=== PATIENT | female | born 2000 | race African-American/Black ===

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

== ENCOUNTER 2021-04-15 22:26 | Emergency (ER) | payer OTHER ==
[2021-04-15 22:42] VITALS: BP 122/74
--- NOTE | 2021-04-15 23:16 | ED Physician Documentation ---
History of Present Illness - Stated complaint Stated Complaint: THROAT PX - Chief complaint Chief Complaint: Heent - History obtained from History obtained from: Patient - Additonal information Additional information: 19-year-old woman presents with chronic throat pain for the past month of unknown origin. Patient denies rhinorrhea, congestion, fever chills, cough, chest pain, shortness of breath. She is previously healthy. She recently moved here. No history of seasonal allergies. Patient was seen at [facility] today via telehealth and had a Covid test done. 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 HEENT: None Psych: None Musculoskeletal: None Derm: None - Past Surgical History Past Surgical History: No - Present Medications Home Medications: Ambulatory Orders Medication Instructions Recorded Confirmed EPINEPHrine [Epinephrine] 0.3 mg IJ ONCE PRN #2 syr 12/22/20 04/15/21 - Allergies Allergies/Adverse Reactions: Allergies Allergy/AdvReac Type Severity Reaction Status Date / Time shellfish derived Allergy Anaphylaxis Verified 04/15/21 22:42 - Social History Does the pt smoke?: No Smoking Status: Never smoker Does the pt drink ETOH?: No Does the pt have substance abuse?: No - Immunizations Immunizations are current?: Yes - POLST Patient has POLST: No PD ED PE NORMAL - Vitals Vital signs reviewed: Yes - General General: Alert and oriented X 3, No acute distress, Well developed/nourished - HEENT HEENT: Atraumatic, PERRL, EOMI, Moist mucous membranes, Pharynx benign - Neck Neck: Supple, no meningeal sign - Cardiac Cardiac: RRR - Respiratory Respiratory: No respiratory distress, Clear bilaterally - Derm Derm: Normal color, Warm and dry - Neuro Neuro: Alert and oriented X 3 - Psych Psych: Normal mood, Normal affect Results - Vitals Vitals: Vital Signs - 24 hr 04/15/21 22:39 Temperature 36.0 C L Heart Rate 82 Respiratory 14 Rate Blood Pressure 122/74 O2 Saturation 100 Oxygen O2 Source Room air PD MEDICAL DECISION MAKING - ED course ED course: 20-year-old presents with chronic sore throat for the past month, seen through [facility] via telehealth earlier today with Covid test done. She presents to have her throat checked. Oropharynx is clear without any white exudates. Return precautions given. Patient will follow up with [facility]. Departure - Departure Disposition: Home, Self Care Clinical Impression: Throat pain Condition: Good Instructions: Sore Throat Comments: You were seen in the emergency department for throat pain. I can see your no abnormalities on your physical exam. Please follow-up with [facility] and follow-up your Covid result. You should isolate at home until you get the results back. Return to the emergency department if you have any new or worsening symptoms or other concerns.
== END 2021-04-15 23:19 | disposition home or self-care (01) ==
LOC: ED 22:26
DX: R07.0 Pain in throat (principal)
CPT/HCPCS: 99281; 99282

== ENCOUNTER 2021-05-04 17:19 | Emergency (ER) | payer OTHER ==
[2021-05-04 18:54] LABS: BILIRUBIN,URINE NEGATIVE (NEGATIVE); GLUCOSE, URINE (UA) NEGATIVE (NEGATIVE); KETONES,URINE (UA) TRACE mg/dL (NEGATIVE); LEUKOCYTE ESTERASE, URINE NEGATIVE (NEGATIVE); NITRITE,URINE NEGATIVE (NEGATIVE); OCCULT BLOOD,URINE NEGATIVE (NEGATIVE); PH,URINE 7.5 PH (5.0-7.5); PROTEIN,URINE NEGATIVE (NEGATIVE); UROBILINOGEN,URINE 2 E.U./dL (NORMAL)
[2021-05-04 18:56] LABS: CLARITY,URINE CLEAR (CLEAR); HCG UR QUAL NEGATIVE
[2021-05-04 19:19] LABS: BASOPHILS % (AUTO) 0.7 %; EOSINOPHILS # (AUTO) 0.3 10^3/uL (0.0-0.7); EOSINOPHILS % (AUTO) 5.7 %; HCT - HEMATOCRIT 42.4 % (37.0-47.0); HGB - HEMOGLOBIN 13.9 g/dL (12.0-16.0); LYMPHOCYTES % (AUTO) 54.1 %; MEAN CORPUSCULAR HEMOGLOBIN 29.2 pg (27.0-31.0); MEAN CORPUSCULAR HGB CONC 32.8 g/dL (32.0-36.0); MEAN CORPUSCULAR VOLUME 89.1 fL (81.0-99.0); MEAN PLATELET VOLUME 9.4 fL (7.9-10.8); MONOCYTES # (AUTO) 0.5 10^3/uL (0.0-1.0); MONOCYTES % (AUTO) 8.2 %; NEUTROPHILS # (AUTO) 1.7 10^3/uL (1.5-6.6); NEUTROPHILS % (AUTO) 31.1 %; PLT - PLATELET COUNT 261 10^3/uL (130-450); RED BLOOD COUNT 4.76 10^6/uL (4.20-5.40); RED CELL DISTRIBUTION WIDTH 12.9 % (12.0-15.0); WHITE BLOOD COUNT 5.6 x10^3/uL (4.8-10.8)
[2021-05-04 19:32] LABS: ALBUMIN 4.1 g/dL (3.2-5.5); BILIRUBIN,TOTAL 0.8 mg/dL (0.2-1.0); CALCIUM 9.6 mg/dL (8.5-10.3); CREATININE 0.6 mg/dL (0.4-1.0); TOTAL PROTEIN 8.1 g/dL (6.7-8.2)
--- NOTE | 2021-05-04 19:43 | ED Physician Documentation ---
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 She denied that she had any abdominal pain however on presentation to the ER she has right flank pain. No fevers. No dysuria urgency or frequency. No history of nephrolithiasis. No history of similar. 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 : None HEENT: None Psych: None Musculoskeletal: None Derm: None - Past Surgical History Past Surgical History: No - Present Medications Home Medications: Ambulatory Orders Medication Instructions Recorded Confirmed EPINEPHrine [Epinephrine] 0.3 mg IJ ONCE PRN #2 syr 12/22/20 04/15/21 - Allergies Allergies/Adverse Reactions: Allergies Allergy/AdvReac Type Severity Reaction Status Date / Time shellfish derived Allergy Anaphylaxis Verified 05/04/21 17:26 - Social History Does the pt smoke?: No Smoking Status: Never smoker Does the pt drink ETOH?: No Does the pt have substance abuse?: No - Immunizations Immunizations are current?: Yes - POLST Patient has POLST: No PD ED PE NORMAL - General General: Alert and oriented X 3, No acute distress - HEENT HEENT: PERRL - Neck Neck: Supple, no meningeal sign - Cardiac Cardiac: RRR, No murmur - Respiratory Respiratory: Clear bilaterally - Abdomen Abdomen: Normal bowel sounds, Soft. No: Non tender (Right lower quadrant and right flank tenderness with No guarding or rebound. Equivocal McBurney's. Negative Nemwan's.) - Back Back: No CVA TTP, No spinal TTP - Derm Derm: Warm and dry - Extremities Extremities: No deformity - Neuro Neuro: Alert and oriented X 3 Eye Opening: Spontaneous Motor: Obeys Commands Results - Vitals Vitals: Vital Signs - 24 hr 05/04/21 05/04/21 17:23 21:00 Temperature 36.3 C L Heart Rate 88 75 Respiratory 18 16 Rate Blood Pressure 126/81 H 131/65 H O2 Saturation 100 100 Oxygen O2 Source Room air - Labs Labs: Laboratory Tests 05/04/21 05/04/21 05/04/21 17:35 19:13 19:13 WBC 5.6 RBC 4.76 Hgb 13.9 Hct 42.4 MCV 89.1 MCH 29.2 MCHC 32.8 RDW 12.9 Plt Count 261 MPV 9.4 Neut # (Auto) 1.7 Lymph # (Auto) 3.0 [place] # (Auto) 0.5 Eos # (Auto) 0.3 Baso # (Auto) 0.0 Absolute Nucleated RBC 0.00 Nucleated RBC % 0.0 Sodium 137 Potassium 4.0 Chloride 102 Carbon Dioxide 26 Anion Gap 9.0 BUN 10 Creatinine 0.6 Estimated GFR (MDRD) 156 Glucose 87 Calcium 9.6 Total Bilirubin 0.8 AST 18 ALT 12 Alkaline Phosphatase 55 Total Protein 8.1 Albumin 4.1 Globulin 4.0 Albumin/Globulin Ratio 1.0 Lipase 31 Urine Color YELLOW Urine Clarity CLEAR Urine pH 7.5 Ur Specific [place] 1.020 Urine Protein NEGATIVE Urine Glucose (UA) NEGATIVE Urine Ketones TRACE Urine Occult Blood NEGATIVE Urine Nitrite NEGATIVE Urine Bilirubin NEGATIVE Urine Urobilinogen 2 H Ur Leukocyte Esterase NEGATIVE Ur Microscopic Review NOT INDICATED Urine Culture Comments NOT INDICATED Urine HCG, Qual NEGATIVE - Rads (name of study) CT abd Radiology: Final report received (Multiple tiny punctate right-sided nephroliths. No evidence for obstructive uropathy. No urinary bladder stone. 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 By the time she presented to the ER the vomiting had dissipated but on exam she is noted to have some right lower quadrant and right flank tenderness. She denies that she is having pain at the time of the vomiting episode. Screening labs showed no worrisome abnormality no findings of infection in the urine or hematuria. But given the vomiting and the now right lower quadrant right flank pain a CT scan was completed. 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 The CT however does show multiple small nonobstructing right-sided nephroliths. No obstruction and no signs of infection in the urine. No indication for antibiotics. I suspect that she was passing a stone at the time that she had the vomiting though she denies that she was having belly pain. Patient is advised to follow- up with urology. I did recommend ibuprofen and Tylenol for discomfort. Emergent return precautions were discussed. Departure - Departure Disposition: Home, Self Care Clinical Impression: Nephrolithiasis Nausea and vomiting Qualifiers: Vomiting type: unspecified Vomiting Intractability: non-intractable Qualified Code(s): R11.2 - Nausea with vomiting, unspecified Condition: Stable Record reviewed to determine appropriate education?: Yes Instructions: ED Stone Kidney Undescended No Sx Comments: You are seen in the emergency department for sudden onset nausea and vomiting. When you presented to the ER you were no longer vomiting and you were now able to tolerate eating and drinking. However we noted that you were fairly tender on the right side of your abdomen. Therefore we did do a CT of the abdomen that shows multiple nonobstructing right-sided kidney stones. I suspect that you are passing a kidney stone at the time that you had the nausea and vomiting earlier in the day. Please discuss this ED visit with [facility]. You should of obtain a referral to urology in follow-up. In general I recommend you take Tylenol or ibuprofen for discomfort. If at any point you feel that your symptoms are worsening, you have uncontrolled vomiting, severe pain in your abdomen or develop any fevers then please return immediately to the ER for second evaluation.
[2021-05-04] MEDS ORDERED: IOVERSOL 320 100 ML VIAL IVP ONE (20:00)
[2021-05-04 21:01] VITALS: BP 131/65
[2021-05-04] MEDS ORDERED: ACETAMINOPHEN 325 MG TABLET PO STA (21:02)
--- NOTE | 2021-05-04 21:05 | CT Report ---
PROCEDURE: Abdomen/Pelvis WO INDICATIONS: RT FLANK PAIN, N/V, RLQ TENDERNESS TECHNIQUE: Noncontrast 5 mm thick sections acquired from the diaphragms to the symphysis. 5 mm coronal and sagi ttal reformats were then performed. For radiation dose reduction, the following was used: automated exposure control, adjustment of mA and/or kV according to patient size. COMPARISON: None. FINDINGS: Image quality: Excellent. ABDOMEN: Lung bases: Lung bases are clear. Heart size is normal. Solid organs: Liver and spleen are normal in size. Gallbladder is unremarkable. Pancreas is normal in contours. No adrenal nodules. Tiny punctate nephroliths are noted in the right kidney without h ydronephrosis. No ureteral stones visualized along the course of the right ureter. No urinary bladder stones seen. Left kidney demonstrates no nephrolithiasis. Bilateral kidneys without hydronephrosis o r perinephric stranding. Peritoneum and bowel: Unenhanced bowel loops demonstrate normal wall thickness and caliber. No free fluid or air. Normal appendix. Nodes and vessels: No retroperitoneal or mesenteric adenopathy by size criteria. Aorta and inferior vena cava are normal in caliber. Miscellaneous: No ventral hernias. PELVIS: Genitourinary: Bladder wall thickness is normal. No urinary bladder stone. Miscellaneous: No inguinal hernias or adenopathy. Bones: No suspicious bony lesions. No acute vertebral body compression fractures. IMPRESSION: Multiple tiny punctate right-sided nephroliths. No evidence for obstructive uropathy. No urinary blad montrell stone. No hydronephrosis or significant perinephric stranding. Normal appendix. Reviewed by: Caleb Contreras MD on 05/04/2021 9:04 PM PST Approved by: Caleb Contreras MD on 05/04/2021 9:04 PM PST Station ID: [id number]
== END 2021-05-04 21:22 | disposition home or self-care (01) ==
LOC: ED 17:19
DX: N20.0 Calculus of kidney (principal); R11.2 Nausea with vomiting, unspecified
CPT/HCPCS: 36415; 74176; 80053; 81003; 81025; 83690; 85025; 99282; 99284; A9270; 81001; 87086

== ENCOUNTER 2021-07-15 08:00 | Outpatient (CLI) | payer OTHER ==
--- NOTE | 2021-07-15 20:15 | XRAY Report ---
PROCEDURE: Shoulder 3 View LT INDICATIONS: LEFT SHOULDER PAIN TECHNIQUE: 3 views of the shoulder were acquired. COMPARISON: None. FINDINGS: Bones: No fractures or dislocations. No suspicious bony lesions. Visualized ribs appear intact. Soft tissues: No suspicious soft tissue calcifications. IMPRESSION: Unremarkable radiographic examination of left shoulder. Reviewed by: Vasquez Paredes MD on 07/15/2021 8:14 PM [facility] Approved by: Vasquez Paredes MD on 07/15/2021 8:14 PM [facility] Station ID: [id number]
== END 2021-07-15 23:59 | disposition home or self-care (01) ==
LOC: DI.N 08:00
PROVIDERS: ATTEND Physician Assistant
DX: M25.512 Pain in left shoulder (principal)

== ENCOUNTER 2021-08-12 08:00 | Outpatient (CLI) | payer OTHER | END 2021-08-12 23:59 | disposition home or self-care (01) | LOC: LAB.N 08:00 | PROVIDERS: ATTEND Family Medicine | DX: R50.9 Fever, unspecified (principal); Z20.822 Contact with and (suspected) exposure to COVID-19 ==

== ENCOUNTER 2021-11-30 08:03 | Outpatient (CLI) | payer OTHER | END 2021-11-30 08:04 | disposition EMS.NT | LOC: EMS 08:03 | DX: F41.9 Anxiety disorder, unspecified (principal) ==

== ENCOUNTER 2021-12-05 14:14 | Emergency (ER) | payer OTHER ==
[2021-12-05 14:58] VITALS: BP 129/77
[2021-12-05 17:00] LABS: BILIRUBIN,URINE NEGATIVE (NEGATIVE); GLUCOSE, URINE (UA) NEGATIVE (NEGATIVE); KETONES,URINE (UA) NEGATIVE (NEGATIVE); LEUKOCYTE ESTERASE, URINE NEGATIVE (NEGATIVE); NITRITE,URINE NEGATIVE (NEGATIVE); OCCULT BLOOD,URINE MODERATE (NEGATIVE); PH,URINE 6.5 PH (5.0-7.5); PROTEIN,URINE NEGATIVE (NEGATIVE); UROBILINOGEN,URINE 1 (NORMAL) E.U./dL (NORMAL)
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
[2021-12-05] MEDS ORDERED: KETOROLAC 60 MG/2 ML VIAL IM STA (17:10)
[2021-12-05 17:11] LABS: CLARITY,URINE CLEAR (CLEAR); HCG UR QUAL NEGATIVE
[2021-12-05 17:12] LABS: BACTERIA,URINE Rare /HPF (None Seen); RBC,URINE 0-5 /HPF (0-5); SQUAMOUS EPITHELIAL CELL,UR FEW Squamous (<= Few); WBC,URINE 0-3 /HPF (0-5)
--- NOTE | 2021-12-05 17:33 | XRAY Report ---
PROCEDURE: Pelvis 1 View INDICATIONS: RIGHT groin pain TECHNIQUE: 1 AP view of the pelvis acquired. COMPARISON: None. FINDINGS: Bones: No fractures or dislocations. No suspicious bony lesions. Soft tissues: Visualized bowel gas pattern is normal. No suspicious soft tissue calcifications. IMPRESSION: Normal study. No acute osseous finding. No distal ureteral calculus demonstrated radiogra phically. Reviewed by: Anatoly Larios MD on 12/05/2021 5:31 PM PDT Approved by: Anatoly Larios MD on 12/05/2021 5:31 PM PDT Station ID: [id number]
== END 2021-12-05 17:55 | disposition home or self-care (01) ==
LOC: ED 14:14
DX: S39.011A Strain of muscle, fascia and tendon of abdomen, initial encounter (principal); X50.0XXA Overexertion from strenuous movement or load, initial encounter
CPT/HCPCS: 81001; 81003; 81025; 87086; 96372; 99284

== ENCOUNTER 2022-03-01 15:28 | Outpatient (CLI) | payer OTHER ==
[2022-03-01 15:52] VITALS: BP 110/72
--- NOTE | 2022-03-01 15:52 | SLEEP CARE CONSULTATION ---
Information from patient questionnaire entered by Darling Blanca. I have reviewed and concur with the information entered by Darling Blanca. This document represents the service I personally performed and the decisions made by , Meme Ramos ARNP. History of Present Illness Service Date and Time: 03/01/2022 1528 Initial Cutler Sleepiness Scale score: 10 (01/30/2022) Current Cutler Sleepiness Scale score: 10 (03/01/22) Additional HPI information: HERMAN QUEVEDO returns for follow up and results of the recently performed polysomnography. The patient was informed of the following findings: No significant sleep disordered breathing with an average AHI of 0.4 and sarabjit oxygen saturation of 89%. I explained the pathophysiology behind obstructive sleep apnea. Patient does not have sleep apnea and was advised how weight gain could increase the risk of developing sleep apnea in the future. Patient has light intensity snoring. Snoring can be reduced by weight loss. Weight loss is best achieved with diet consult. Patient instructed to contact PCP for referral. Snoring can also be treated with an oral appliance from a dentist. Advised to check insurance coverage. In addition, an ENT evaluation can be do to see if other treatment is indicated. Patient does not drink alcohol. Patient was cautioned about risks of drowsy driving until sleepiness symptoms resolve. Sleep Study - Results Type of Sleep Study: Polysomnography (F/U POLY, DONE ON 02/13/22) Prior sleep studies: No Polysomnography/Home Sleep Study results: IMPRESSION: The quality of the study is good. The patient had slightly reduced sleep efficiency due to sleep onset insomnia. The sleep architecture was normal. Respiratory monitoring showed no significant sleep disordered breathing (AHI = 0.4) or hypoxia (sarabjit oxygen saturation of 89%). The patient slept adequately in supine position (supine AHI = 1.0; non-supine = 0.24). Snore was infrequent and light in intensity. There was no significant periodic leg movement of sleep. Cardiac rhythm was normal sinus rhythm without significant arrhythmia. No abnormal behavior (parasomnia) observed during the night. Allergies and Home Medications Home medication list reviewed: Yes (Zolpidem to 12.5 mg) Allergy and home medication list: Allergies shellfish derived Allergy (Verified 12/05/21 15:11) Anaphylaxis Review of Systems Review of systems same as previous: Yes (no changes) Physical Exam Vital signs obtained and entered by: JAMILAH MAI Blood Pressure: 110/72 (LEFT ARM ) Cuff size: regular Heart Rate: 102 O2 Saturation: 99 Height: 5 ft 4 in Weight: 141 lb Body Mass Index: 24.2 BMI Classification: Healthy weight Impression and Plan 1. Insomnia, unspecified. Insomnia is generally caused by an irregular sleep schedule, spending too much time in bed, napping, caffiene, electronics, lack of a relaxing bedtime ritual and clock watching. Other factors can include anxiety/depression, pain and medications. First I counseled the patient on the importance of a regular sleep schedule, starting with the wake time. I explained the homestatic sleep drive and how maintaining a regular wake time will allow the patient to be tired enough to sleep 15-16 hours later. By waking at the same time, the patient will also feel more alert. This can also be assisted by exposure to bright light for a minimum of 15 minutes a day upon waking. Additionally too much time spent in bed can cause more sleep disruption as most people only need 7-9 hours of sleep. Thus patient advised to restrict time in bed to 7-8 hours. Naps are to be avoided unless overcome by sleepiness. Then naps are to be restricted to one hour and before 3 pm so as not to interfere with nighttime sleep. Most caffeine is to be stopped after lunch as it has a 6 hour half life and reduce sleep latency and efficiency. In addition, it is important to have a relaxing ritual about 30-60 minutes before bedtime to allow the mind/body transition from an active day to sleep. Electronics should be avoided 1-2 hours before bedtime as the bright light can reduce the endogenous melatonin and the activity of the computer, tablet, cell phone etc can be alerting. TV is okay but content needs to be relaxing and the brightness dimmed. A warm bath or shower is another way to assist transition to sleep. In addition, it is important to have a sleep environment conducive to sleep such as a comfortable bed, comfortable temperature and quiet. The alarm clock should be set and the face covered to prevent clock watching if awakened during the night. Knowing the time can cause anxiety and increase alertness and thinking about sleep time and preparation for the next day. Instead if awakened after sleep, the patient is to position for comfort or use bathroom and return to sleep. If unable to go to sleep in an estimated 20 minutes of more, it is advised to leave the bedroom and engage in a quiet activity until sleepy enough to return to bed. If unable to sleep due to things on the mind, it is recommended to write out the concerns or list to do as a release then return to a quiet activity until sleepy enough to return to bed. This is to be repeated as often as necessary to associate the bed with sleep and not frustration to get to sleep. [facility] How to Sleep Better pamphlet given and reviewed. A sleep diary will be completed for the next 2 weeks to assist implementation of recommendations and for further evaluation of sleep concerns. * Follow up with Dr. Joseph for insomnia * Fill out 2 weeks of sleep diary, bring to appointment * Return in 2-4 weeks for follow up. Visit Type: In Office Time Spent with Patient (minutes): 12 Provider Statement: I spent 100% of the Face to Face Visit with the patient with greater than 50% spent counseling the patient and coordination of care.
== END 2022-03-01 15:29 | disposition home or self-care (01) ==
LOC: SC 15:28
PROVIDERS: ATTEND Nurse Practitioner Family
DX: G47.00 Insomnia, unspecified (principal)
CPT/HCPCS: 99212; 99213

== ENCOUNTER 2022-06-16 18:19 | Outpatient (CLI) | payer OTHER | END 2022-06-16 18:20 | disposition critical access hospital (66) | LOC: EMS 18:19 | DX: R10.32 Left lower quadrant pain (principal) | CPT/HCPCS: A0425; A0429 ==

== ENCOUNTER 2022-06-16 18:47 | Day surgery (SDC) | payer OTHER ==
[2022-06-16 19:39] LABS: BASOPHILS % (AUTO) 0.5 %; EOSINOPHILS # (AUTO) 0.1 10^3/uL (0.0-0.7); EOSINOPHILS % (AUTO) 0.9 %; HCT - HEMATOCRIT 41.3 % (37.0-47.0); HGB - HEMOGLOBIN 13.9 g/dL (12.0-16.0); LYMPHOCYTES # (AUTO) 2.1 10^3/uL (1.5-3.5); LYMPHOCYTES % (AUTO) 24.1 %; MEAN CORPUSCULAR HEMOGLOBIN 29.3 pg (27.0-31.0); MEAN CORPUSCULAR HGB CONC 33.7 g/dL (32.0-36.0); MEAN CORPUSCULAR VOLUME 86.9 fL (81.0-99.0); MONOCYTES # (AUTO) 0.5 10^3/uL (0.0-1.0); MONOCYTES % (AUTO) 5.1 %; NEUTROPHILS # (AUTO) 6.1 10^3/uL (1.5-6.6); NEUTROPHILS % (AUTO) 69.1 %; PLT - PLATELET COUNT 300 10^3/uL (130-450); RED BLOOD COUNT 4.75 10^6/uL (4.20-5.40); RED CELL DISTRIBUTION WIDTH 12.2 % (12.0-15.0); WHITE BLOOD COUNT 8.8 x10^3/uL (4.8-10.8)
[2022-06-16 19:53] LABS: ALBUMIN 4.3 g/dL (3.2-5.5); ALBUMIN/GLOBULIN RATIO 1.4 (1.0-2.2); BILIRUBIN,TOTAL 1.2 mg/dL (0.2-1.0); CALCIUM 9.1 mg/dL (8.5-10.3); CREATININE 0.7 mg/dL (0.4-1.0); POTASSIUM 3.6 mmol/L (3.5-5.0); TOTAL PROTEIN 7.3 g/dL (6.7-8.2)
--- NOTE | 2022-06-16 22:32 | ED Physician Documentation ---
PD HPI ABD PAIN - Stated complaint Stated Complaint: LEFT LOWER ABD PAIN, KIDNEY STONE 1 MONTH AGO - Chief complaint Chief Complaint: General - History obtained from History obtained from: Patient - History of Present Illness Timing - onset: Today (this morning) Timing - details: Gradual onset, Waxing and waning Pain level now: 10 Quality: Pain Location: LUQ, LLQ Radiation: Left flank Improved by: Other (no ameliorating factors) Worsened by: Other (palpation, movement) Associated symptoms: Nausea, Vomiting. No: Fever Similar symptoms before: Has not had sx before Recently seen: Not recently seen - Additional information Additional information: Patient complains of left-sided abdominal and left flank pain since earlier today, this morning. Pain is constant but waxes and wanes. It is worse with movement and palpation. She has also had nausea and vomiting with this pain. She notes vaginal bleeding since this morning. When I asked if she might be she says "maybe". She denies history of similar symptoms. Patient denies h/o . Review of Systems Constitutional: reports: Reviewed and negative Cardiac: reports: Reviewed and negative Respiratory: reports: Reviewed and negative GI: reports: Abdominal Pain, Nausea, Vomiting. denies: Abdominal Swelling : reports: Vaginal bleeding. denies: Dysuria, Frequency Musculoskeletal: reports: Reviewed and negative PD PAST MEDICAL HISTORY - Past Medical History Cardiovascular: None Respiratory: None Neuro: None Endocrine/Autoimmune: None GI: None EDITOR MAP: None : None HEENT: None Psych: None Musculoskeletal: None Derm: None - Past Surgical History Past Surgical History: No - Present Medications Home Medications: Ambulatory Orders Medication Instructions Recorded Confirmed Gabapentin [Neurontin] 400 mg PO DAILY 06/17/22 06/17/22 Zolpidem Tartrate [Ambien Cr] 12.5 mg PO QPM 06/17/22 06/17/22 - Allergies Allergies/Adverse Reactions: Allergies Allergy/AdvReac Type Severity Reaction Status Date / Time shellfish derived Allergy Anaphylaxis Verified 06/16/22 19:19 - Social History Does the pt smoke?: No Smoking Status: Never smoker Does the pt drink ETOH?: No Does the pt have substance abuse?: No - Immunizations Immunizations are current?: Yes - POLST Patient has POLST: No PD ED PE NORMAL - Vitals Vital signs reviewed: Yes - General General: Alert and oriented X 3, Well developed/nourished, Other (obvious moderate-severe painful distress) - HEENT HEENT: Moist mucous membranes - Cardiac Cardiac: RRR, No murmur - Respiratory Respiratory: No respiratory distress, Clear bilaterally - Abdomen Abdomen: Soft, Non distended, Other (diffuse abdominal TTP ) - Back Back: No CVA TTP - Derm Derm: Normal color Results - Vitals Vitals: Vital Signs - 24 hr 06/17/22 06/17/22 06/17/22 09:58 10:00 10:05 Temperature 36.4 C L 36.7 C 36.4 C L Heart Rate 102 H 124 H 119 H Respiratory 16 22 15 Rate Blood Pressure 115/65 110/76 99/54 L O2 Saturation 100 100 100 06/17/22 06/17/22 06/17/22 10:10 10:15 10:20 Temperature 36.4 C L 36.4 C L 36.4 C L Heart Rate 122 H 110 H 113 H Respiratory 19 19 15 Rate Blood Pressure 105/74 121/51 L 117/81 H O2 Saturation 100 100 100 06/17/22 06/17/22 06/17/22 10:25 10:30 10:35 Temperature 36.4 C L 36.5 C 36.5 C Heart Rate 111 H 103 H 112 H Respiratory 15 15 15 Rate Blood Pressure 117/81 H 125/72 134/72 H O2 Saturation 100 99 99 06/17/22 06/17/22 06/17/22 10:40 10:45 10:50 Temperature 36.7 C 36.7 C 36.7 C Heart Rate 112 H 111 H 120 H Respiratory 22 22 16 Rate Blood Pressure 127/70 133/80 H 129/74 O2 Saturation 99 99 99 06/17/22 06/17/22 06/17/22 10:55 11:00 11:05 Temperature 36.7 C 36.7 C 36.7 C Heart Rate 110 H 100 129 H Respiratory 22 22 26 H Rate Blood Pressure 100/56 L 129/74 100/56 L O2 Saturation 99 99 99 06/17/22 06/17/22 06/17/22 11:10 11:15 11:20 Temperature 36.7 C 36.7 C 36.7 C Heart Rate 122 H 120 H 125 H Respiratory 28 H 28 H 22 Rate Blood Pressure 141/71 H 120/73 120/77 O2 Saturation 99 99 99 06/17/22 06/17/22 06/17/22 11:22 11:35 11:50 Temperature 36.7 C 36.7 C 36.7 C Heart Rate 122 H 110 H 112 H Respiratory 28 H 22 20 Rate Blood Pressure 129/73 122/78 128/77 O2 Saturation 99 99 99 06/17/22 06/17/22 12:05 12:20 Temperature 36.7 C 36.7 C Heart Rate 120 H 120 H Respiratory 18 18 Rate Blood Pressure 126/84 H 122/72 O2 Saturation 100 100 Oxygen O2 Source Room air - Labs Labs: Laboratory Tests 06/16/22 06/16/22 06/16/22 19:33 19:33 19:33 WBC 8.8 RBC 4.75 Hgb 13.9 Hct 41.3 MCV 86.9 MCH 29.3 MCHC 33.7 RDW 12.2 Plt Count 300 MPV 9.0 Neut # (Auto) 6.1 Lymph # (Auto) 2.1 [place] # (Auto) 0.5 Eos # (Auto) 0.1 Baso # (Auto) 0.0 Absolute Nucleated RBC 0.00 Nucleated RBC % 0.0 Sodium 134 L Potassium 3.6 Chloride 102 Carbon Dioxide 24 Anion Gap 8.0 BUN 9 Creatinine 0.7 Estimated GFR (MDRD) 129 Glucose 97 Calcium 9.1 Total Bilirubin 1.2 H AST 17 ALT 15 Alkaline Phosphatase 46 Total Protein 7.3 Albumin 4.3 Globulin 3.0 Albumin/Globulin Ratio 1.4 Lipase 27 HCG, Quant 7107.00 Blood Type 06/17/22 06/17/22 06/17/22 01:16 01:28 01:28 WBC 10.7 RBC 4.46 Hgb 13.2 Hct 38.8 MCV 87.0 MCH 29.6 MCHC 34.0 RDW 12.1 Plt Count 261 MPV 9.1 Neut # (Auto) 6.9 H Lymph # (Auto) 2.9 [place] # (Auto) 0.8 Eos # (Auto) 0.1 Baso # (Auto) 0.0 Absolute Nucleated RBC 0.00 Nucleated RBC % 0.0 Sodium Potassium Chloride Carbon Dioxide Anion Gap BUN Creatinine Estimated GFR (MDRD) Glucose Calcium Total Bilirubin AST ALT Alkaline Phosphatase Total Protein Albumin Globulin Albumin/Globulin Ratio Lipase HCG, Quant 4113.00 Blood Type B POSITIVE 06/17/22 06/17/22 10:15 10:15 WBC 6.3 RBC 4.19 L Hgb 12.4 Hct 37.1 MCV 88.5 MCH 29.6 MCHC 33.4 RDW 12.5 Plt Count 230 MPV 8.9 Neut # (Auto) 3.7 Lymph # (Auto) 2.0 [place] # (Auto) 0.4 Eos # (Auto) 0.1 Baso # (Auto) 0.0 Absolute Nucleated RBC 0.00 Nucleated RBC % 0.0 Sodium Potassium Chloride Carbon Dioxide Anion Gap BUN Creatinine Estimated GFR (MDRD) Glucose Calcium Total Bilirubin AST ALT Alkaline Phosphatase Total Protein Albumin Globulin Albumin/Globulin Ratio Lipase HCG, Quant 5118.00 Blood Type PD Medical Decision Making - ED course Complexity details: reviewed old records, reviewed results, re-evaluated patient, considered differential, d/w patient, d/w child welfare consultant (Dr. Louie (monkey trainer warp knitting machine operator for [facility])) ED course: Patient presents with severe pelvic and abdominal pain since earlier this morning.Patient indicates she does not think she is but acknowledges that it is possible. She is given 1 mg IV Dilaudid and 4 mg IV Zofran which resulted in excellent symptom relief followed by patient report and visually. On reexamination of her abdomen, she has focal though significant LLQ and left anterior left hemipelvic TTP. She was unable to produce enough urine to allow for urinalysis or urine hCG and thus a serum (quantitative) is ordered. The serum HCG is over 7,000. Unfortunately by the time this result was available, ultrasound was not available at [facility]. I discussed this case and the test results with Dr. Louie (monkey trainer warp knitting machine operator for [facility]). She subsequently came to the emergency department and evaluated the patient at bedside and performed transvaginal ultrasound which appeared to demonstrate early IUP. Dr. Louie requests a redraw of the serum quantitative HCG, and the repeat result is 4100. Patient continues to have intermittent pelvic pain, cramping, as well as intermittent vaginal bleeding. Spontaneous but incomplete miscarriage is strongly suspected at this point. This was discussed with the patient and options for management were discussed with patient; these included D+C, discharge home with expectant management , and discharge home with prescription for misoprostol (as well as pain medication). Patient understandably heavily pondered these different options and I reevaluated patient a few times to ascertain her decision. She subsequently had recurrence of the pelvic pain, which returned to a level of severity comparable to when she first presented to the ER. This was associated with a sudden increase in her vaginal bleeding. She is thus interested in having D&C performed later this morning. She is held in the emergency department until the morning when she was then taken to the operating room for this procedure. Departure - Departure Disposition: ED Transfer to [facility] Clinical Impression: Miscarriage Condition: Stable Discharge Date/Time: 06/17/22 08:35
[2022-06-16] MEDS ORDERED: SODIUM CHLORIDE 0.9% 1,000 ML IV STA (22:55)
[2022-06-16] MEDS ORDERED: HYDROmorphone 1 MG/ML CARPUJECT IVP STA (22:55)
[2022-06-16] MEDS ORDERED: ONDANSETRON 4 MG/2 ML VIAL IVP STA (22:55)
--- NOTE | 2022-06-17 01:38 | CONSULTATION NOTE ---
Surgery Consult - Consult Date Consult Date: 06/17/22 Requesting Provider: Dr.Zachary Ramirez - Chief Complaint Chief Complaint: Pelvic pain - Home Meds/Allergies Home Medications: Patient History Medication Instructions Recorded Confirmed Zolpidem Tartrate [Ambien Cr] 12.5 mg PO QPM 06/17/22 06/17/22 Allergies/Adverse Reactions: Allergies Allergy/AdvReac Type Severity Reaction Status Date / Time shellfish derived Allergy Anaphylaxis Verified 06/16/22 19:19 - Vital Signs Vital Signs: Last Vital Signs Temp 99.1 F 06/16/22 19:15 Pulse 90 06/17/22 00:15 Resp 18 06/17/22 00:15 BP 109/69 06/17/22 00:15 Pulse Ox 97 06/17/22 00:15 O2 Flow Rate Intake & Output: Intake & Output 06/14/22 06/15/22 06/16/22 06/17/22 23:59 23:59 23:59 23:59 Intake Total 1000 Balance 1000 - Lab Results Result Diagrams: 06/16/22 19:33 06/16/22 19:33 - Consultation Note Consultation Note: 21yo with LMP 05/08/22 not using contraception presented to ED via EMS with abdominal pain L>R. Started vaginal bleeding in ED. Not aware she was . HCG 7107. OB called as US not available at night. Bedside US shows gestational sac and possible yolk sac. GEN: mild distress CV: Regular rate Resp: breathing unlabored Abd: soft, mild tenderness pelvis Ext: nt : Speculum: clots removed, tissue removed from vault, os appears closed 21yo with incomplete SAb - Treatment options reviewed
[2022-06-17 01:41] LABS: BASOPHILS % (AUTO) 0.3 %; EOSINOPHILS # (AUTO) 0.1 10^3/uL (0.0-0.7); EOSINOPHILS % (AUTO) 1.3 %; HCT - HEMATOCRIT 38.8 % (37.0-47.0); HGB - HEMOGLOBIN 13.2 g/dL (12.0-16.0); LYMPHOCYTES # (AUTO) 2.9 10^3/uL (1.5-3.5); LYMPHOCYTES % (AUTO) 26.6 %; MEAN CORPUSCULAR HEMOGLOBIN 29.6 pg (27.0-31.0); MEAN PLATELET VOLUME 9.1 fL (7.9-10.8); MONOCYTES # (AUTO) 0.8 10^3/uL (0.0-1.0); MONOCYTES % (AUTO) 7.1 %; NEUTROPHILS # (AUTO) 6.9 10^3/uL (1.5-6.6); NEUTROPHILS % (AUTO) 64.4 %; PLT - PLATELET COUNT 261 10^3/uL (130-450); RED BLOOD COUNT 4.46 10^6/uL (4.20-5.40); RED CELL DISTRIBUTION WIDTH 12.1 % (12.0-15.0); WHITE BLOOD COUNT 10.7 x10^3/uL (4.8-10.8)
[2022-06-17] MEDS ORDERED: HYDROmorphone 1 MG/ML CARPUJECT IVP STA ×3 (02:30→04:56)
[2022-06-17] MEDS ORDERED: ONDANSETRON 4 MG/2 ML VIAL IVP STA ×2 (04:51→07:29)
[2022-06-17] MEDS ORDERED: SODIUM CHLORIDE 0.9% 1,000 ML IV STA ×2 (04:56→06:34)
[2022-06-17] MEDS ORDERED: HYDROmorphone 1 MG/ML CARPUJECT ONE ×2 (04:57→10:54)
[2022-06-17] MEDS ORDERED: LIDOCAINE MPF 2%-EPI 1:200000 20 ML VIAL ONE (07:55)
[2022-06-17] MEDS ORDERED: BUPIVACAINE 0.5% PF 30 ML VIAL ONE (07:56)
[2022-06-17] MEDS ORDERED: PROPOFOL 200 MG/20 ML VIAL IVP ONE (08:24)
[2022-06-17] MEDS ORDERED: fentaNYL 100 MCG/2 ML VIAL ONE ×3 (08:25→10:29)
[2022-06-17] MEDS ORDERED: MIDAZOLAM 2 MG/2 ML VIAL ONE (08:25)
--- NOTE | 2022-06-17 09:03 | ANESTHESIA ---
Pre-Anesthesia VS, & Labs - Diagnosis spontaneous AB - Procedure Suction D&C Vital Signs: Temp Pulse Resp BP Pulse Ox O2 Flow Rate 36.2 C L 68 18 105/57 L 100 06/17/22 03:02 06/17/22 07:00 06/17/22 07:00 06/17/22 07:00 06/17/22 07:00 Height: 5 ft 4 in Weight (kg): 65.771 kg Body Mass Index: 24.9 BMI Classification: Normal - NPO >8 hours - Is Patient ?: Yes - Lab Results Current Lab Results: Laboratory Tests 06/17/22 01:28: HCG, Quant 4113.00 06/17/22 01:28: WBC 10.7, RBC 4.46, Hgb 13.2, Hct 38.8, MCV 87.0, MCH 29.6, MCHC 34.0, RDW 12.1, Plt Count 261, MPV 9.1, Neut # (Auto) 6.9 H, Lymph # (Auto) 2.9, [place] # (Auto) 0.8, Eos # (Auto) 0.1, Baso # (Auto) 0.0, Absolute Nucleated RBC 0.00, Nucleated RBC % 0.0 06/17/22 01:16: Blood Type B POSITIVE 06/16/22 19:33: HCG, Quant 7107.00 06/16/22 19:33: Sodium 134 L, Potassium 3.6, Chloride 102, Carbon Dioxide 24, Anion Gap 8.0, BUN 9, Creatinine 0.7, Estimated GFR (MDRD) 129, Glucose 97, Calcium 9.1, Total Bilirubin 1.2 H, AST 17, ALT 15, Alkaline Phosphatase 46, Total Protein 7.3, Albumin 4.3, Globulin 3.0, Albumin/Globulin Ratio 1.4, Lipase 27 06/16/22 19:33: WBC 8.8, RBC 4.75, Hgb 13.9, Hct 41.3, MCV 86.9, MCH 29.3, MCHC 33.7, RDW 12.2, Plt Count 300, MPV 9.0, Neut # (Auto) 6.1, Lymph # (Auto) 2.1, [place] # (Auto) 0.5, Eos # (Auto) 0.1, Baso # (Auto) 0.0, Absolute Nucleated RBC 0.00, Nucleated RBC % 0.0 Lab results reviewed: Yes Fish Bones: 06/17/22 01:28 06/16/22 19:33 Home Medications and Allergies Home Medications: Ambulatory Orders Gabapentin [Neurontin] 400 mg PO DAILY 06/17/22 Zolpidem Tartrate [Ambien Cr] 12.5 mg PO QPM 06/17/22 Active Medications Sodium Chloride (Normal Saline 0.9%) 1,000 mls @ 150 mls/hr IV .Q6H40M STA Stop: 06/17/22 13:13 Last Admin: 06/17/22 07:46 Dose: 150 mls/hr Gabapentin [Neurontin] 400 mg PO DAILY 06/17/22 Zolpidem Tartrate [Ambien Cr] 12.5 mg PO QPM 06/17/22 Allergies/Adverse Reactions: Allergies Allergy/AdvReac Type Severity Reaction Status Date / Time shellfish derived Allergy Anaphylaxis Verified 06/16/22 19:19 Anes History & Medical History - Anesthetic History Anesthesia Complications: reports: No previous complications - Medical History Cardiovascular: reports: None Pulmonary: reports: None Gastrointestinal: reports: None Urinary: reports: Kidney stones Neuro: reports: Migraines Musculoskeletal: reports: None Endocrine/Autoimmune: reports: None Blood Disorders: reports: None Skin: reports: None Smoking Status: Never smoker Psychosocial: reports: No issues indicated History of Cancer?: No - Surgical History General: reports: EGD Eyes Ears Nose Throat (EENT): reports: Myringotomy (tubes) Exam General: Alert, Oriented x3, Cooperative, No acute distress Dental: WNL Mouth Openin Fingerbreadth Neck Mobility: Normal Mallampati classification: II Thyromental Distance: 4-6 cm Mental/Cognitive Status: Alert/Oriented X3, Normal for patient Plan Anesthesia Type: General Consent for Procedure(s) Verified and Reviewed: Yes Code Status: Attempt Resuscitation ASA classification: 2-Mild systemic disease Is this case an emergency?: Yes
[2022-06-17] MEDS ORDERED: ONDANSETRON 4 MG/2 ML VIAL IVP PRN (09:04)
[2022-06-17] MEDS ORDERED: NALOXONE 0.4 MG/ML VIAL IVP PRN (09:04)
[2022-06-17] MEDS ORDERED: ATROPINE ABBOJECT 1 MG/10 ML SYRINGE IVP PRN (09:04)
[2022-06-17] MEDS ORDERED: HYDROmorphone 0.5 MG/0.5 ML SYRINGE IVP PRN (09:04)
[2022-06-17] MEDS ORDERED: MORPHINE 2 MG/ML CARPUJECT IVP PRN (09:04)
[2022-06-17] MEDS ORDERED: fentaNYL 100 MCG/2 ML VIAL IVP PRN (09:04)
[2022-06-17] MEDS ORDERED: KETOROLAC 30 MG/ML VIAL ONE (09:10)
[2022-06-17] MEDS ORDERED: LACTATED RINGERS 1,000 ML IV SCH (10:00)
[2022-06-17] MEDS ORDERED: LACTATED RINGERS 1,000 ML IV ONE (10:00)
--- NOTE | 2022-06-17 10:09 | OPERATIVE REPORT ---
Operative Report - General Procedure Date: 06/17/22 Planned Procedure: Dilation and curettage Pre-Op Diagnosis: Incomplete spontaneous Procedure Performed: Dilation and curettage Post Op Diagnosis: Completed early loss - Procedure Note Primary Surgeon: Delores Louie DO Secondary Surgeon: Chela Coreas NP; assistance required for initial US guidance Anesthesia Provider: Steffany Corrales CRNA Anesthesia Technique: General LMA Pathology: Products of conception Estimated Blood Loss (mL): 50 Indications: Incomplete spontaneous Findings: Moderate amount of products of conception Uterus sounded to 8cm Complications: None - Other Other Information/Narrative: Taken to OR, general LMA obtained without difficulty. Placed in dorsal lithotomy position. Prepped and draped in sterile fashion. Bladder emptied. Speculum placed. Tenaculum placed anterior lip of cervix. 8mm suction curette introduced and uterus cleared of POCs. US guidance performed. Sharp curette performed. Uterus confirmed to be cleared. All instruments removed vaginally. US tech then completed pelvic ultrasound as this was unable to be completed overnight, to evaluate adnexa. Plan to repeat CBC and HCG post operatively. Counts correct x2. Taken to recovery in stable condition.
[2022-06-17 10:21] LABS: BASOPHILS % (AUTO) 0.3 %; EOSINOPHILS # (AUTO) 0.1 10^3/uL (0.0-0.7); EOSINOPHILS % (AUTO) 1.9 %; HCT - HEMATOCRIT 37.1 % (37.0-47.0); HGB - HEMOGLOBIN 12.4 g/dL (12.0-16.0); LYMPHOCYTES % (AUTO) 31.8 %; MEAN CORPUSCULAR HEMOGLOBIN 29.6 pg (27.0-31.0); MEAN CORPUSCULAR HGB CONC 33.4 g/dL (32.0-36.0); MEAN CORPUSCULAR VOLUME 88.5 fL (81.0-99.0); MEAN PLATELET VOLUME 8.9 fL (7.9-10.8); MONOCYTES # (AUTO) 0.4 10^3/uL (0.0-1.0); MONOCYTES % (AUTO) 6.6 %; NEUTROPHILS # (AUTO) 3.7 10^3/uL (1.5-6.6); NEUTROPHILS % (AUTO) 58.9 %; PLT - PLATELET COUNT 230 10^3/uL (130-450); RED BLOOD COUNT 4.19 10^6/uL (4.20-5.40); RED CELL DISTRIBUTION WIDTH 12.5 % (12.0-15.0); WHITE BLOOD COUNT 6.3 x10^3/uL (4.8-10.8)
[2022-06-17] MEDS ORDERED: ACETAMINOPHEN 500 MG TABLET PO ONE ×2 (10:37→11:00)
[2022-06-17] MEDS: LORazepam 2 MG/ML VIAL IVP PRN ×2 (10:40→10:52)
--- NOTE | 2022-06-17 10:40 | Ultrasound Report ---
PROCEDURE: Pelvic w/Transvaginal INDICATIONS: SAB TECHNIQUE: Real-time scanning was performed of the pelvic organs, with image documentation. Additional endovagi nal scanning was necessary due to incomplete visualization of the adnexal and endometrial structures by transabdominal scanning. COMPARISON: None. FINDINGS: Uterus: Uterus is anteverted and normal in size at 6.8 x 3.7 x 4.6 cm. The myometrium is homogeneou s. The endometrium measures 9 mm in combined thickness. Scrutiny is given to routine prominence of conception. None can be seen. No abnormal hypervascular material can be seen along the endometrial st ripe. Ovaries: The right ovary measures 4.8 x 3.8 x 4.2 cm, with a calculated ovarian volume of 40 cc. Th e left ovary measures 3.4 x 1.4 x 1.9 cm, with a calculated ovarian volume of 6 cc. The right ovary demonstrates a complex nodule with internal vascularity that measures 2.6 x 2.3 x 2.4 cm. Less than 12 follicles can be seen in each ovary. No adnexal masses are seen. Other: No pathologic free abdominal or pelvic fluid. IMPRESSION: No findings of retained products of conception can be seen. Complex nodule involving the right ovary. Please consider a hemorrhagic cyst versus corpus luteum. I f clinically appropriate, please consider a short-term follow-up ultrasound in 6 weeks to ensure reso lution/improvement. Note: Dr. Louie was present for the examination. Reviewed by: Josafat Mcintyre MD on 06/17/2022 9:39 AM [facility] Approved by: Josafat Mcintyre MD on 06/17/2022 9:39 AM [facility] Station ID: [id number]
[2022-06-17] MEDS ORDERED: traMADol 50 MG TABLET PO ONE ×2 (10:43→11:00)
[2022-06-17] MEDS ORDERED: DOXYCYCLINE 100 MG TABLET PO ONE ×3 (11:00→11:35)
[2022-06-17] MEDS ORDERED: LACTATED RINGERS 500 ML IV ONE (11:28)
[2022-06-17] MEDS ORDERED: ONDANSETRON ODT 4 MG TABLET TL STA (12:15)
[2022-06-17] MEDS ORDERED: ONDANSETRON ODT 4 MG TABLET ONE (12:26)
[2022-06-17 13:01] VITALS: BP 122/72
--- NOTE | 2022-06-17 13:43 | ANESTHESIA POST OP EVALUATION ---
Anesthesia Post Eval - Post Anesthesia Eval Vitals: Last Vital Signs Temp 36.7 C 06/17/22 12:20 Pulse 120 H 06/17/22 12:20 Resp 18 06/17/22 12:20 BP 122/72 06/17/22 12:20 Pulse Ox 100 06/17/22 12:20 O2 Flow Rate CV Function Including HR & BP: Stable Pain Control: Satisfactory Nausea & Vomiting: Negative Mental Status: Baseline Respiratory Status: Airway Patent Hydration Status: Satisfactory Anesthesia Complications: None
== END 2022-06-17 07:41 | disposition home or self-care (01) ==
LOC: EDUNIT# → ED 18:47 → SDS 06-17 07:40
PROVIDERS: ATTEND Obstetrics & Gynecology
PROC: 10D17Z9 Manual Extraction of Products of Conception, Retained, Via Natural or Artificial Opening (ICD-10-PCS; principal; 2022-06-17 08:00)
DX: O03.4 Incomplete spontaneous abortion without complication (principal)
CPT/HCPCS: 36415; 59812; 76830; 76856; 80053; 83690; 84702; 85025; 86900; 86901; 96361; 96374; 96375; 96376; 99284; 99285; A9270; J1170; J2060; J7120; Q0162

== ENCOUNTER 2022-06-19 05:03 | Emergency (ER) | payer OTHER ==
[2022-06-19] MEDS ORDERED: ONDANSETRON 4 MG/2 ML VIAL IVP STA (05:26)
[2022-06-19] MEDS ORDERED: KETOROLAC 15 MG/ML VIAL IVP STA (05:26)
[2022-06-19] MEDS ORDERED: SODIUM CHLORIDE 0.9% 1,000 ML IV STA ×2 (05:26→07:36)
--- NOTE | 2022-06-19 05:30 | ED Physician Documentation ---
History of Present Illness - Stated complaint Stated Complaint: ABD/BACK PX - Chief complaint Chief Complaint: Abd Pain - History obtained from History obtained from: Patient, Family (sister) - Additonal information Additional information: 21yF presents s/p d and c 06/17 for incomplete spontaneous . today she is experiencing n/v, abd pain and vaginal spotting. further initial history limited by patient nausea/discomfort Review of Systems Unable to obtain: Other (history limited by patient nausea/discomfort) PD PAST MEDICAL HISTORY - Past Medical History Cardiovascular: None Respiratory: None Neuro: None Endocrine/Autoimmune: None GI: None CHIEF DEPUTY: None : None HEENT: None Psych: None Musculoskeletal: None Derm: None - Past Surgical History Past Surgical History: No General: EGD HEENT: Myringotomy (tubes) - Present Medications Home Medications: Ambulatory Orders Medication Instructions Recorded Confirmed Gabapentin [Neurontin] 400 mg PO DAILY 06/17/22 06/17/22 Zolpidem Tartrate [Ambien Cr] 12.5 mg PO QPM 06/17/22 06/17/22 - Allergies Allergies/Adverse Reactions: Allergies Allergy/AdvReac Type Severity Reaction Status Date / Time shellfish derived Allergy Anaphylaxis Verified 06/19/22 05:12 - Social History Does the pt smoke?: No Smoking Status: Never smoker Does the pt drink ETOH?: No Does the pt have substance abuse?: No - Immunizations Immunizations are current?: Yes - POLST Patient has POLST: No PD ED PE NORMAL - Vitals Vital signs reviewed: Yes - General General: Alert and oriented X 3, Other (groaning, hovering over emesis bag) - HEENT HEENT: Atraumatic, PERRL, EOMI, Moist mucous membranes - Neck Neck: Supple, no meningeal sign - Cardiac Cardiac: RRR - Respiratory Respiratory: No respiratory distress, Clear bilaterally - Abdomen Abdomen: Non tender, Non distended - Back Back: No CVA TTP - Derm Derm: Normal color, Warm and dry - Neuro Neuro: No motor deficit, No sensory deficit Results - Vitals Vitals: Vital Signs - 24 hr 06/19/22 05:09 Temperature 36.7 C Heart Rate 100 Respiratory 18 Rate Blood Pressure 127/87 H O2 Saturation 100 Oxygen O2 Source Room air - Labs Labs: Laboratory Tests 06/19/22 06/19/22 06/19/22 05:34 05:34 05:34 WBC 7.1 RBC 4.27 Hgb 12.5 Hct 37.4 MCV 87.6 MCH 29.3 MCHC 33.4 RDW 12.2 Plt Count 242 MPV 9.2 Neut # (Auto) 3.5 Lymph # (Auto) 2.8 [place] # (Auto) 0.5 Eos # (Auto) 0.2 Baso # (Auto) 0.0 Absolute Nucleated RBC 0.00 Nucleated RBC % 0.0 Sodium 137 Potassium 3.0 L Chloride 104 Carbon Dioxide 25 Anion Gap 8.0 BUN 5 L Creatinine 0.7 Estimated GFR (MDRD) 129 Glucose 114 H Calcium 9.0 Total Bilirubin 0.9 AST 17 ALT 12 Alkaline Phosphatase 46 Total Protein 6.9 Albumin 3.9 Globulin 3.0 Albumin/Globulin Ratio 1.3 Lipase 32 HCG, Quant 875.18 PD Medical Decision Making - ED course ED course: 21yF p/w abd pain, n/v and vaginal spotting s/p d and c 06/17 for incomplete . plan to treat symptomatically, reassess. Patient still with significant pain in RLQ and suprapubic region. endorsed to Dr. Chen awaiting CT and u/s.
[2022-06-19 05:56] LABS: BASOPHILS % (AUTO) 0.6 %; EOSINOPHILS # (AUTO) 0.2 10^3/uL (0.0-0.7); HCT - HEMATOCRIT 37.4 % (37.0-47.0); HGB - HEMOGLOBIN 12.5 g/dL (12.0-16.0); LYMPHOCYTES # (AUTO) 2.8 10^3/uL (1.5-3.5); LYMPHOCYTES % (AUTO) 39.9 %; MEAN CORPUSCULAR HEMOGLOBIN 29.3 pg (27.0-31.0); MEAN CORPUSCULAR HGB CONC 33.4 g/dL (32.0-36.0); MEAN CORPUSCULAR VOLUME 87.6 fL (81.0-99.0); MEAN PLATELET VOLUME 9.2 fL (7.9-10.8); MONOCYTES # (AUTO) 0.5 10^3/uL (0.0-1.0); MONOCYTES % (AUTO) 7.3 %; NEUTROPHILS # (AUTO) 3.5 10^3/uL (1.5-6.6); NEUTROPHILS % (AUTO) 48.9 %; PLT - PLATELET COUNT 242 10^3/uL (130-450); RED BLOOD COUNT 4.27 10^6/uL (4.20-5.40); RED CELL DISTRIBUTION WIDTH 12.2 % (12.0-15.0); WHITE BLOOD COUNT 7.1 x10^3/uL (4.8-10.8)
[2022-06-19 06:05] LABS: ALBUMIN 3.9 g/dL (3.2-5.5); ALBUMIN/GLOBULIN RATIO 1.3 (1.0-2.2); BILIRUBIN,TOTAL 0.9 mg/dL (0.2-1.0); CREATININE 0.7 mg/dL (0.4-1.0); TOTAL PROTEIN 6.9 g/dL (6.7-8.2)
[2022-06-19] MEDS ORDERED: POTASSIUM CHLOR 10 MEQ/100 ML 10 MEQ/100 ML BAG IV ONE (06:51)
[2022-06-19] MEDS ORDERED: MORPHINE 2 MG/ML CARPUJECT IVP STA (06:51)
[2022-06-19] MEDS ORDERED: HYDROmorphone 1 MG/ML CARPUJECT IVP STA ×2 (07:31→08:58)
[2022-06-19] MEDS ORDERED: HYDROmorphone 1 MG/ML CARPUJECT ONE (07:52)
[2022-06-19] MEDS ORDERED: iohexoL-300 100 ML VIAL ONE (07:53)
[2022-06-19] MEDS ORDERED: iohexoL-300 100 ML VIAL IVP ONE (08:30)
--- NOTE | 2022-06-19 08:42 | CT Report ---
PROCEDURE: ABDOMEN/PELVIS W INDICATIONS: RLQ and suprapubic pain s/p d c 2 d ago CONTRAST: 100ml Omnipaque 300 TECHNIQUE: After the administration of IV contrast, 5 mm thick sections acquired from the diaphragms to the symp hysis. 5 mm thick coronal and sagittal reformats were acquired. For radiation dose reduction, the f ollowing was used: automated exposure control, adjustment of mA and/or kV according to patient size. COMPARISON: 05/04/2021 FINDINGS: Image quality: Excellent. ABDOMEN: Lung bases: Lung bases are clear. Heart size is normal. Solid organs: Liver and spleen are normal in size and enhancement. Gallbladder wall does not appear thickened. Biliary system is non dilated. Pancreas enhances normally. No adrenal nodules. There is an obstructing stone seen within the right proximal ureter, as on series 3 image 42 and on s eries 6 image 28, measuring up to 3 mm. There is associated moderate right-sided hydroureter and necr osis. Right-sided perinephric fluid can be seen. There is a mild delayed right nephrogram seen. There is a nonobstructing right-sided kidney stone measuring 1 mm, as on series 6 image 31. No left-sided kidney stones are seen. No left-sided hydronephrosis. Peritoneum and bowel: Bowel loops demonstrate normal wall thickness and caliber. No free fluid or a ir. A normal appendix is believed to be partially seen, as on series 6 images 26-28. Nodes and vessels: No retroperitoneal or mesenteric adenopathy by size criteria. Aorta and inferior vena cava are normal in size. Miscellaneous: No ventral hernias. PELVIS: Genitourinary: Bladder wall thickness is normal. The uterus appears unremarkable. Physiologic cysti c changes can be seen of the ovaries. Miscellaneous: No inguinal hernias or adenopathy. Bones: No suspicious bony lesions. No vertebral body compression fractures. IMPRESSION: There is an obstructing 3 mm stone within the right proximal ureter, with associated rig ht-sided hydroureter and hydronephrosis. Right perinephric fluid is also seen. Nonobstructing 1 mm right-sided kidney stone. Unremarkable uterus, with no significant pelvic pathology seen. A normal-appearing appendix is believed to be partially seen. Reviewed by: Josafat Mcintyre MD on 06/19/2022 7:41 AM AKST Approved by: Josafat Mcintyre MD on 06/19/2022 7:41 AM [place] Station ID: [id number]
[2022-06-19] MEDS ORDERED: DEXAMETHASONE 10 MG/ML VIAL IVP STA (08:58)
[2022-06-19] MEDS ORDERED: LIDOCAINE-MPF 2% 5 ML in SODIUM CHLORIDE 0.9% 50 ML IV STA (08:58)
--- NOTE | 2022-06-19 09:02 | ED Physician Documentation ---
ED Addendum - Addendum Addendum: 06/19/22 09:00 The patient is still having considerable pain. We will give a repeat dose of hydromorphone. Her CT scan came back with the results showing a 3 mm proximal to mid ureteral stone with some mild hydronephrosis and hydroureter on the right. The uterus is normal. Ovaries appear normal. No free fluid in the abdomen or pelvis. No free air. At this point there does not appear to be a complication related to the recent D&C or . I canceled the pelvic ultrasound therefore. We can emphasize treatment now for kidney stone. We will supplement anti- inflammatory IV. Give more hydromorphone for pain but can also give IV lidocaine for renal stone dosing. Goal will be to have pain manageable and then outpatient treatment with oral medications. Diagnoses: 1. Right ureteral stone with hydroureter 2. Significant right sided abdominal pain 3. Status post D&C without complications
[2022-06-19 09:11] LABS: BILIRUBIN,URINE NEGATIVE (NEGATIVE); GLUCOSE, URINE (UA) NEGATIVE (NEGATIVE); KETONES,URINE (UA) TRACE mg/dL (NEGATIVE); LEUKOCYTE ESTERASE, URINE NEGATIVE (NEGATIVE); NITRITE,URINE NEGATIVE (NEGATIVE); OCCULT BLOOD,URINE LARGE (NEGATIVE); PROTEIN,URINE NEGATIVE (NEGATIVE); UROBILINOGEN,URINE 0.2 (NORMAL) E.U./dL (NORMAL)
[2022-06-19 09:19] LABS: CLARITY,URINE HAZY (CLEAR); RBC,URINE TNTC /HPF (0-5); WBC,URINE 0-3 /HPF (0-5)
[2022-06-19 09:20] LABS: BACTERIA,URINE Few /HPF (None Seen); SQUAMOUS EPITHELIAL CELL,UR FEW Squamous (<= Few)
[2022-06-19] MEDS ORDERED: DROPERIDOL 5 MG/2 ML VIAL IVP STA (10:10)
[2022-06-19 11:08] VITALS: BP 101/62
== END 2022-06-19 11:06 | disposition home or self-care (01) ==
LOC: ED 05:03
DX: N13.2 Hydronephrosis with renal and ureteral calculous obstruction (principal)
CPT/HCPCS: 36415; 74177; 80053; 81001; 83690; 84702; 85025; 96365; 96375; 99284; 99285; J1170; J7040; Q9967; 81003; 87086